=== PATIENT | male | born 2000 | race Caucasian/White ===

== ENCOUNTER → 2020-10-11 12:47 | Outpatient (BNVA) | payer SELFPAY | PROVIDERS: PCP Pediatrics; Visit Provider Physician Assistant | DX: Z02.79 Encounter for issue of other medical certificate (principal) ==

== ENCOUNTER → 2022-07-25 13:22 | Outpatient (BNVA) | payer OTHER, SELFPAY | PROVIDERS: PCP Pediatrics; Visit Provider Physician Assistant Medical | DX: S67.41XA Crushing injury of right wrist and hand, initial encounter (principal); W23.0XXA Caught, crushed, jammed, or pinched between moving objects, initial encounter | CPT/HCPCS: 73110; 99213 ==

== ENCOUNTER → 2022-08-01 10:53 | Outpatient (BNVA) | payer OTHER, SELFPAY | PROVIDERS: PCP Pediatrics; Visit Provider Physician Assistant Medical | DX: S67.31XA Crushing injury of right wrist, initial encounter (principal); S57.81XA Crushing injury of right forearm, initial encounter; W23.0XXA Caught, crushed, jammed, or pinched between moving objects, initial encounter | CPT/HCPCS: 99213 ==

== ENCOUNTER → 2022-08-24 10:54 | Outpatient (BNVA) | payer OTHER, SELFPAY | PROVIDERS: PCP Pediatrics; Visit Provider Physician Assistant | DX: S67.41XD Crushing injury of right wrist and hand, subsequent encounter (principal); W23.0XXD Caught, crushed, jammed, or pinched between moving objects, subsequent encounter | CPT/HCPCS: 99213 ==

== ENCOUNTER 2022-08-30 18:25 | Outpatient (REF) | payer OTHER, SELFPAY ==
--- NOTE | ~2022-08-30 | MR_ITS ---
EXAMINATION: MR WRIST WITHOUT CONTRAST, RIGHT MRI OF THE RIGHT UPPER EXTREMITY/FOREARM WITHOUT CONTRAST CLINICAL INFORMATION: Crush injury radicular pain. Decreased range of motion. Intermittent paresthesias to digit. COMPARISON: No acute fracture dislocation of the right wrist. TECHNIQUE: MRI of the wrist was performed using routine sequences on a high-field scanner. FINDINGS: RIGHT WRIST: Subcutaneous Soft Tissues: Normal. Muscles/Tendons: Normal. Neurovascular Structures: Normal. Triangular Fibrocartilage Complex: Normal. Intraosseous Ligaments: Normal. Bone/Cartilage: Mild arthrosis/degenerative change along the dorsal aspect of the 3rd carpometacarpal joint. Remaining bone and joints are normal. No effusion. Joint manifested by focal cartilage heterogeneity and subchondral cystic change. RIGHT FOREARM: Subcutaneous Soft Tissues: Normal. Muscles/Tendons: Normal. Neurovascular Structures: Normal. Lymph Nodes: None. Bone: Normal. MR/MR wrist RT wo con IMPRESSION: RIGHT WRIST: Mild arthrosis of the third carpometacarpal joint RIGHT FOREARM: Normal. Neurovascular structures including radial nerve and branches appear normal.
--- NOTE | ~2022-08-30 | MR_ITS ---
EXAMINATION: MR WRIST WITHOUT CONTRAST, RIGHT MRI OF THE RIGHT UPPER EXTREMITY/FOREARM WITHOUT CONTRAST CLINICAL INFORMATION: Crush injury radicular pain. Decreased range of motion. Intermittent paresthesias to digit. COMPARISON: No acute fracture dislocation of the right wrist. TECHNIQUE: MRI of the wrist was performed using routine sequences on a high-field scanner. FINDINGS: RIGHT WRIST: Subcutaneous Soft Tissues: Normal. Muscles/Tendons: Normal. Neurovascular Structures: Normal. Triangular Fibrocartilage Complex: Normal. Intraosseous Ligaments: Normal. Bone/Cartilage: Mild arthrosis/degenerative change along the dorsal aspect of the 3rd carpometacarpal joint. Remaining bone and joints are normal. No effusion. Joint manifested by focal cartilage heterogeneity and subchondral cystic change. RIGHT FOREARM: Subcutaneous Soft Tissues: Normal. Muscles/Tendons: Normal. Neurovascular Structures: Normal. Lymph Nodes: None. Bone: Normal. MR/MR forearm RT wo con IMPRESSION: RIGHT WRIST: Mild arthrosis of the third carpometacarpal joint RIGHT FOREARM: Normal. Neurovascular structures including radial nerve and branches appear normal.
== END 2022-08-30 18:26 | disposition home or self-care (01) ==
LOC: HO.MRI 18:25
PROVIDERS: Visit Provider Internal Medicine
DX: R20.2 Paresthesia of skin (principal); M79.601 Pain in right arm
CPT/HCPCS: 73218; 73221

== ENCOUNTER → 2022-09-05 14:03 | Outpatient (BNVA) | payer OTHER, SELFPAY | PROVIDERS: Visit Provider Physician Assistant Medical | DX: S67.3 Crushing injury of wrist (principal); S57.81XD Crushing injury of right forearm, subsequent encounter; X58.XXXD Exposure to other specified factors, subsequent encounter | CPT/HCPCS: 99213 ==

== ENCOUNTER → 2022-09-19 14:52 | Outpatient (BNVA) | payer OTHER, SELFPAY | PROVIDERS: Visit Provider Physician Assistant Medical | DX: M25.531 Pain in right wrist (principal); M79.631 Pain in right forearm | CPT/HCPCS: 99213 ==

== ENCOUNTER 2022-09-25 13:30 | Outpatient (RCR) | payer OTHER, SELFPAY ==
--- NOTE | 2022-08-23 14:21 | MHC.OT.EP ---
[address] [phone] Occupational Therapy Plan of Care Date of Evaluation: 08/23/22 Diagnosis: Right wrist crush injury Pain Location: Pain right volar wrist/forearm Current: 6/10 Best: 3/10 Worst: 8/10 with spasms Pain Score: 6 Aggravating Factors: Wrist flexion, lifting, forceful grasp Alleviating Factors: Ice, wrist support Assessment: Pt is a 22 y/o male referred to OT s/p right wrist/forearm crush injury while working. Since injury, pt. reports 6/10 pain in volar forearm, radiating to medial elbow, with wrist flexion and any lifting/grasping. He experiences occasional numbness in all fingertips, as well as spasms in right bicep. X-rays were negative for fracture or dislocation. Pt. is scheduled for MRI next . He is very TTP throughout wrist flexors and medial epicondyle and has increased pain with active wrist flex/ext. Gross grasp on the R is 15#, compared to 70# on the L. A 79.5% limitation is reported per the Quick DASH assessment. Recommended thermal modalities for pain management and gentle wrist/hand/elbow ROM until obtaining results of MRI, then skilled OT 2x/wk for 4 weeks for pain management and return to PLOF. 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 Thank you once again for your referral.
--- NOTE | 2022-09-18 15:02 | MHC.OT.OP ---
[address] [phone] F: [phone] Occupational Therapy Progress Note Patient Name: Janna Reis Diagnosis: Right wrist crush injury Date of Evaluation: 08/23/22 Treatments to Date: 4 Cancellations to Date: 2 Subjective: The pain is pretty much gone, I'll prob go back to work tomorrow Pain Score: 1 Pain Location: right forearm Objective Measures: Gross Grasp R 50lb L 70lb Right wrist ext/flex 70/60 Status: Progressing Assessment: Janna is about two months s/p forearm crush injury. He has been on light duty and overall mindful of heavy lifting, but starting to progress strengthening. STG met and progressing well towards LTG, gross grasp and range significantly improved. Pain mostly with trying to lift heavy objects (case of water). He is vry motivated and hopeful to return back to work soon, good carry over w/ HEP, still some tenderness and tightness in volar forearm. 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
--- NOTE | 2022-09-25 13:50 | MHC.OT.DC ---
[address] [phone] F: [phone] Occupational Therapy Discharge Note Patient Name: Janna Reis Provider: Tejal Mcdonald Diagnosis: Right wrist crush injury Date of Surgery: Date of Evaluation: 08/23/22 Date of Discharge: 09/25/22 Treatments to Date: 5 Cancellations to Date: 2 No Shows to Date: 0 Discharge Status: Achieved Goals Improved Function Independent with HEP Discharge Summary: Pt significantly better this week without c/o pain and has resumed all normal activity. Continues to be mindful of heavy lifting, although does not report any limitations. Tolerated all progressive resistive exercises well today. At this time, pt. has full wrist and elbow AROM, strength has returned to WNL's, and pt. has met all goals set on admission. Pt. is discharged to [facility] and has follow up next week with work connection. Electronically Signed By: Ruthie Crowley MS OTR/L Reviewed/agree with student documentation: Therapist: Please Sign and return to therapist, thank you for your referral.
== END 2022-09-25 13:51 | disposition home or self-care (01) ==
LOC: HO.OT 13:30
PROVIDERS: PCP Pediatrics; Visit Provider Physician Assistant Medical
DX: S67.3 Crushing injury of wrist (principal)
CPT/HCPCS: 97035; 97110; 97165

== ENCOUNTER → 2022-10-04 14:07 | Outpatient (BNVA) | payer OTHER, SELFPAY | PROVIDERS: Visit Provider Physician Assistant | DX: S67.3 Crushing injury of wrist (principal); S57.81XD Crushing injury of right forearm, subsequent encounter; X58.XXXD Exposure to other specified factors, subsequent encounter | CPT/HCPCS: 99213 ==